=== PATIENT | male | born 1995 | race Caucasian/White ===

== ENCOUNTER 2018-08-11 05:50 | Day surgery (SDC) | payer BC ==
[~2018-08-11] VITALS: Ht 175.3 cm; Wt 118.4 kg
[2018-08-11] MEDS ORDERED: ZOFRAN4 MG PO (06:16)
[2018-08-11 06:20] VITALS: BP 126/75; Ht 175.3 cm; Wt 118.4 kg
[2018-08-11] MEDS ORDERED: HYDROCODON-ACE1 EAC7 PO (09:20)
--- NOTE | 2018-08-11 10:00 | NUR ---
REC'D FROM RR. FAMILY AT BEDSIDE. STERI STRIPS CDI TO ABD. FL TRAY AND LEMON PAMUNKEY SERVED TO PT.
--- NOTE | 2018-08-11 10:30 | NUR ---
TOLERATING DIET. EXPLAINED DC CRITERIA OF HAVING TO VOID BEFORE CAN DC, VERBALIZED UNDERSTANDING. FAMILY/FRIEND AT BEDSIDE.
--- NOTE | 2018-08-11 11:00 | NUR ---
TOLERATED DIET. STILL NO URGE TO VOID. LEMON NEW [place]UY[place]OK SODA BROUGHT TO PT. FAMILY/FRIEND AT BEDSIDE.
--- NOTE | 2018-08-11 11:30 | NUR ---
PT VOIDED. IV DC'D WITH CATHETER INTACT. WRITTEN AND VERBAL DC INST. GIVEN TO PT. VERBALIZED UNDERSTANDING.
--- NOTE | 2018-08-11 11:35 | NUR ---
DC'D HOME WITH FAMILY/FRIEND VIA PRIVATE VEHICLE. TAKEN TO VEHICLE VIA WC. STABLE AT TIME OF DC.
== END 2018-08-11 11:35 | disposition home or self-care (01) ==
LOC: D.OPS 05:50 → D.PAN 08:00 → D.OPS 11:35
DX: K80.10 Calculus of gallbladder with chronic cholecystitis without obstruction (principal); Z01.812 Encounter for preprocedural laboratory examination